=== PATIENT | female | born 1985 | race Caucasian/White ===

== ENCOUNTER 2024-08-17 10:14 | Outpatient (AMB) | payer OTHER, SELFPAY ==
--- NOTE | 2024-08-17 10:18 | A.OFFPC_ITS ---
Vital Signs 08/17/24 10:37 Height 5 ft 2.99 in Weight 188 lb 6 oz BMI 33.4 BP 104/70 Blood Pressure Location Rt brachial Position Sitting Respiration 14 Pulse 65 Pulse Source Pulse Oximeter Pulse Oximetry (%) 97 Oxygen Delivery Method Room Air Intake Visit Reasons: COMPANION CAREGIVER/PE appt Intake Note: New patient visit Allergies No Known Allergies Allergy (Verified 08/17/24 10:32) Medication List - Last Reconciled 08/17/24 by Heather Hilario PA-C bupropion HCl 100 mg PO DAILY cholecalciferol (vitamin D3) 125 mcg PO DAILY Tobacco use date assessed: 08/17/24 Dental Screening Did you have a dental visit in the last 12 months?: No Did you have a dental problem in the last 6 months where you did not have access to dental care?: No Was dental information given to patient?: Patient declined HPI COMPANION CAREGIVER/PE appt HPI Details Patient is a 39-year-old female with a significant past medical history of dysthymia, generalized anxiety disorder and obesity presenting today to [facility]. She denies any acute concerns today. 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 States that she is very happy. She was last seen by myself and had a physical on 09/22/23. Psych: Has been well-controlled with Wellbutrin 150 mg Adjunct Professor Of English: Up-to-date. Follows with Dr. Herrera. Had a tubal ligation. [facility] Family History (Updated 08/17/24 @ 11:11 by Malissa Marin CMA) Mother Anxiety Depression Diabetes HTN (hypertension) Hypothyroidism Obesity Father ADHD Osteoarthritis Brother Anxiety Depression Sister Anxiety Depression Other FHx: mental illness Social History (Updated 08/17/24 @ 11:12 by Malissa Marin CMA) Housing: House Alcohol intake: current Patient Tobacco Use Status: Never used Tobacco e-Cigarette/Vaping Use: Never Used Second Hand Smoke Exposure: No Use of substances other than those prescribed or required for medical reasons: No Cognitive needs: No Hearing needs: No Vision needs: No Questionnaire PHQ-9 Over the last 2 weeks, how often have you been bothered by any of the following problems? 1. Little interest or pleasure in doing things: more than half the days 2. Feeling down, depressed, or hopeless: more than half the days 3. Trouble falling or staying asleep, or sleeping too much: more than half the days 4. Feeling tired or having little energy: more than half the days 5. Poor appetite or overeating: more than half the days 6. Feeling bad about yourself - or that you are a failure or have let yourself or your family down: more than half the days 7. Trouble concentrating on things, such as reading the newspaper or watching television: more than half the days 8. Moving or speaking so slowly that other people could have noticed. Or the opposite - being so fidgety or restless that you have been moving around a lot more than usual: more than half the days 9. Thoughts that you would be better off or of hurting yourself in some way: more than half the days Total score: 18 Depression Screening Interpretation: Positive Depression Screening Done: Yes 39847 - PHQ-9 Billing: Yes Source: Developed by Drs. Anastacio Dela Cruz, Briana Tang, Rahul Rolle and colleagues, with an educational matilda from [employer]. Thrive Questionnaire Date Thrive assessed: 08/17/24 I am a: Patient What is your living situation today?: I have a steady place to live Within the past 12 months, did the food you bought not last and you didn't have the money to get more?: Never true Within the past 12 months, did you worry whether your food would run out before you got money to buy more?: Never true Do you have trouble paying for medicines?: No Do you have trouble getting transportation to medical appointments?: No Do you have trouble paying your heating and electricity bill?: No Do you have trouble taking care of your child, family member or friend?: No Do you have trouble with day-to-day activities such as bathing, preparing meals, shopping, managing finances, etc.?: No Are you currently unemployed and looking for a job?: No Are you interested in more education?: No Please select the resources that you would like help with: None Currently or been in a relationship where the following occur: No concerns reported THRIVE Score: 0 AUDIT C Alcohol Use Questionnaire (AUDIT-C) 1. How often do you have a drink containing alcohol?: 2-3 times a week 2. How many drinks containing alcohol do you have on a typical day when you are drinking?: 3 or 4 3. How often do you have six or more drinks on one occasion?: Less than monthly Total Score: 5 KRISS-7 AMB Questionnaire KRISS-7 Date KRISS - 7 assessed: 08/17/24 Feeling nervous, anxious, or on edge: 3 = Nearly every day Not being able to stop or control worryin = Nearly every day Worrying too much about different things: 3 = Nearly every day Trouble relaxin = More than half the days Being so restless that it is hard to sit still: 1 = Several days Becoming easily annoyed or irritable: 2 = More than half the days Feeling afraid as if something awful might happen: 2 = More than half the days Total KRISS-7 score (0-4 normal; 5-9 mild; 10-14 moderate; 15-21 severe): 16 Source: Developed by Drs. Anastacio Dela Cruz, Briana Tang, Rahul Rolle and colleagues, with an educational matilda from [employer]. KRISS-7 Assessment Billing KRISS-7 Assessment Tool: KRISS-7 Assessment 35193 Physical exam (Primary Care) Vital Signs: Last Vital Signs Pulse 65 08/17/24 10:37 Resp 14 08/17/24 10:37 BP 104/70 08/17/24 10:37 Pulse Ox 97 08/17/24 10:37 Oxygen Delivery Method Room Air 08/17/24 10:37 BMI result Body Mass Index 33.4 Tobacco/Smoking Status: Tobacco use Status Tobacco use date assessed 08/17/24 08/17/24 10:36 Patient Tobacco Use Status Never used Tobacco 08/17/24 10:36 e-Cigarette/Vaping Use Never Used 08/17/24 10:36 PHQ-9: PHQ-9 Score PHQ-9: Total score 18 08/17/24 11:12 Depression Screening Interpretation: Positive Thrive Assessment: Date of Thrive Assessment Date Thrive assessed 08/17/24 08/17/24 11:12 Currently or been in a relationship where the following occur: No concerns reported Const Orientation/consciousness: patient oriented x3 HENMT Ears: hearing grossly normal bilaterally Neck Thyroid: Thyroid normal Lymphatic: no lymphadenopathy noted Resp Auscultation: clear to auscultation bilaterally Cardio Rate: regular rate Rhythm: regular rhythm Heart sounds: S1 normal heart sound present and S2 normal heart sound present GI Inspection: Yes normal to inspection Palpation (GI): Soft to palpation and Other GI palpation findings present (nontender, no cva tenderness) Auscultation: normoactive bowel sounds Rectal Exam - Female: deferred Skin General skin exam: no rashes or lesions noted Neuro General: patient oriented x3, gait normal and no focal motor deficits Coding Level of Care Code Est Pt Level 4 (24743) Complex EM visit Add On G2211 Diagnoses Dysthymia F34.1 Generalized anxiety disorder F41.1 Additional Codes KRISS-7 Assessment Billing - KRISS-7 Assessment Tool: KRISS-7 Assessment 12717 ([id number]) PHQ-9 - 79414 - PHQ-9 Billing: Yes ([id number]) Assessment & Plan Assessment & Plan (1) Dysthymia: Code(s): F34.1 - Dysthymic disorder Category: Medical Plan: Continue current regimen. Refills provided. Labs ordered today. Follow up pending test results. (2) Generalized anxiety disorder: Code(s): F41.1 - Generalized anxiety disorder Category: Medical Plan: As above. Orders: Orders Comprehensive Printer. Panel Fast Today F34.1 - Dysthymic disorder, F41.1 - Generalized anxiety disorder, Z00.00 - Encounter for general adult medical exa mination without abnormal findings Complete Blood Count Auto Diff Today F34.1 - Dysthymic disorder, F41.1 - Generalized anxiety disorder, Z00.00 - Encounter for general adult medical examination without abnormal findings TSH reflex Free T4 Today F34.1 - Dysthymic disorder, F41.1 - Generalized anxiety disorder, Z00.00 - Encounter for general adult medical examination without abnormal findings Lipid Panel Today F34.1 - Dysthymic disorder, F41.1 - Generalized anxiety disorder, Z00.00 - Encounter for general adult medical examination without abnormal findings Vitamin B12 and Folate Today F34.1 - Dysthymic disorder, F41.1 - Generalized anxiety disorder, Z00.00 - Encounter for general adult medical examination without abnormal findings Medications: New bupropion HCl XL (Wellbutrin XL) 150 mg PO QAM 90 tabs 3RF
[2024-08-17 10:37] VITALS: BP 104/70; PULSE 65; RESP 14; O2SAT 97; BMI 33.4
== END 2024-08-17 10:54 | disposition home or self-care (01) ==
LOC: HO.HMCFM 10:15
PROVIDERS: PCP Physician Assistant; Visit Provider Physician Assistant
DX: F34.1 Dysthymic disorder (principal); F41.1 Generalized anxiety disorder

== ENCOUNTER → 2024-08-17 10:14 | Outpatient (BNVA) | payer OTHER, SELFPAY | PROVIDERS: PCP Physician Assistant; Visit Provider Physician Assistant | DX: F34.1 Dysthymic disorder (principal); F41.1 Generalized anxiety disorder | CPT/HCPCS: 96127 ==

== ENCOUNTER 2025-04-28 12:08 | Outpatient (REF) | payer OTHER, SELFPAY ==
[2025-04-28 13:57] LABS: MANUAL DIFF FLAG NO
[2025-04-28 14:03] LABS: Hematocrit 37.5 % (37.0-47.0); Hemoglobin 12.5 g/dl (12.0-16.0); Imm Gran Abs Auto 0.02 X10*3/uL (0.00-0.03); Imm Gran Pct Auto 0.2 % (0.0-0.4); Lymphocytes Absolute Auto 1.8 X10*3/uL (1.2-4.9); Mean Corpuscular HGB Conc 33.3 g/dl (31.0-35.0); Mean Corpuscular Hemoglobin 30.5 pg (27.0-33.0); Mean Corpuscular Volume 91.5 fL (80.0-98.0); NRBC Abs Auto 0.000 X10*3/uL (0.0-0.012); NRBC Pct Auto 0.0 /100WBC (0.0-0.2); Platelet Count 284 X10*3/uL (160-400); Red Blood Count 4.10 X10*6/uL (4.20-5.50); White Blood Count 10.0 X10*3/uL (4.8-10.8)
[2025-04-28 14:22] LABS: Alanine Aminotransferase 22 U/L (0-31); Albumin Level 4.0 g/dL (3.5-5.0); Alkaline Phosphatase 60 U/L (39-117); Anion Gap 9 (12-20); Aspartate Amino Transferase 21 U/L (5-31); Blood Urea Nitrogen 19 mg/dL (9-16); Calcium 9.4 mg/dL (8.4-10.2); Carbon Dioxide 22 mmol/L (22-29); Chloride 110 mmol/L (96-108); Cholesterol 168 mg/dL (<200); Estimated Glomerular Filt Rate > 60; HDL Cholesterol 47 mg/dL (>40); Potassium 4.3 mmol/L (3.3-5.1); Sodium 137 mmol/L (135-145); Total Protein 7.9 g/dL (6.5-8.0); Triglycerides 70 mg/dL (<150)
[2025-04-28 14:48] LABS: Folate 12.1 ng/mL (> or = 4.0); Vitamin B12 527 pg/mL (200-900)
== END 2025-04-28 12:09 | disposition home or self-care (01) ==
LOC: HO.WFDLDS 12:08
PROVIDERS: Visit Provider Physician Assistant
DX: Z00.00 Encounter for general adult medical examination without abnormal findings (principal); F34.1 Dysthymic disorder; F41.1 Generalized anxiety disorder
CPT/HCPCS: 36415; 80053; 80061; 82607; 82746; 84443; 85025

== ENCOUNTER 2025-06-01 09:14 | Outpatient (AMB) | payer OTHER, SELFPAY ==
--- NOTE | 2025-06-01 09:26 | A.OFFPC_ITS ---
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 Allergies No Known Allergies Allergy (Verified 06/01/25 09:27) Medication List - Last Reconciled 06/01/25 by Heather Hilario PA-C bupropion HCl XL (Wellbutrin XL) 150 mg PO QAM cholecalciferol (vitamin D3) 125 mcg PO DAILY prednisone take 3 tab po x 3 days, take 2 tab po x 3 days, 1 tab po x 3 days Tobacco use date assessed: 06/01/25 Dental Screening Dental Screen Date: 06/01/25 Did you have a dental visit in the last 12 months?: No Did you have a dental problem in the last 6 months where you did not have access to dental care?: No Was dental information given to patient?: Patient declined HPI CPE HPI Details Patient is [id number] female with a significant past medical history of dysthymia, generalized anxiety disorder presenting today for a physical exam She does have 1 concern today that her left hand and wrist started bothering her about 2 months ago. She states that it started with soft tissue swelling over the dorsum of the hand and feeling like her knuckles and her wrists were just achy. She states it felt like an arthritis kayaking stiffness and achiness. She states eventually the joint then became erythematous. It has since calmed down in the amount of redness but it still does have a purplish discoloration. She says that she has been wearing a brace which is somewhat helpful and taking Motrin which alleviates the discomfort. She thought initially she just possibly injured her hand despite not recalling any trauma. She states it is now concer mayra because has been a couple of months and it has not resolved. Upon exam today we did review that the purplish, dusky erythema does extend up the lower left arm as well and she states that it has probably been like that the last month or so as well. No known tick bites, fever, chills, illness. No family history of autoimmune diseases. Psych: Has been well-controlled with Wellbutrin 150 mg Biomedical Engineering Technologist: Up-to-date. Follows with Dr. Herrera. Had a tubal ligation. Mammo: Has not had 1 yet PFSH Family History Mother Anxiety Depression Diabetes HTN (hypertension) Hypothyroidism Obesity Father ADHD Osteoarthritis Brother Anxiety Depression Sister Anxiety Depression Other FHx: mental illness Social History (Updated 06/01/25 @ 09:33 by Malissa Marin CMA) Housing: House Alcohol intake: current Patient Tobacco Use Status: Never used Tobacco e-Cigarette/Vaping Use: Never Used Second Hand Smoke Exposure: No service: No Current occupational status: employed Current occupation: nurse Current occupational exposures/hazards: No Cognitive needs: No Hearing needs: No Vision needs: No Questionnaire PHQ-9 Over the last 2 weeks, how often have you been bothered by any of the following problems? 1. Little interest or pleasure in doing things: several days 2. Feeling down, depressed, or hopeless: several days 3. Trouble falling or staying asleep, or sleeping too much: several days 4. Feeling tired or having little energy: several days 5. Poor appetite or overeating: several days 6. Feeling bad about yourself - or that you are a failure or have let yourself or your family down: several days 7. Trouble concentrating on things, such as reading the newspaper or watching television: several days 8. Moving or speaking so slowly that other people could have noticed. Or the opposite - being so fidgety or restless that you have been moving around a lot more than usual: not at all 9. Thoughts that you would be better off or of hurting yourself in some way: not at all Total score: 7 Depression Screening Interpretation: Positive Depression Screening Done: Yes 65443 - PHQ-9 Billing: Yes Source: Developed by Drs. Anastacio Dela Cruz, Briana Tang, Rahul Rolle and colleagues, with an educational matilda from [employer]. Thrive Questionnaire Date Thrive assessed: 05/25/25 I am a: Patient What is your living situation today?: I have a steady place to live Within the past 12 months, did the food you bought not last and you didn't have the money to get more?: Never true Within the past 12 months, did you worry whether your food would run out before you got money to buy more?: Never true Do you have trouble paying for medicines?: No Do you have trouble getting transportation to medical appointments?: No Do you have trouble paying your heating and electricity bill?: No Do you have trouble taking care of your child, family member or friend?: No Do you have trouble with day-to-day activities such as bathing, preparing meals, shopping, managing finances, etc.?: No Are you currently unemployed and looking for a job?: No Are you interested in more education?: No Please select the resources that you would like help with: None Currently or been in a relationship where the following occur: No concerns reported THRIVE Score: 0 AUDIT C Alcohol Use Questionnaire (AUDIT-C) 1. How often do you have a drink containing alcohol?: 2-4 times a month 2. How many drinks containing alcohol do you have on a typical day when you are drinking?: 1 or 2 3. How often do you have six or more drinks on one occasion?: Less than monthly Total Score: 3 KRISS-7 AMB Questionnaire KRISS-7 Date KRISS - 7 assessed: 06/01/25 Feeling nervous, anxious, or on edge: 3 = Nearly every day Not being able to stop or control worryin = More than half the days Worrying too much about different things: 2 = More than half the days Trouble relaxin = More than half the days Being so restless that it is hard to sit still: 1 = Several days Becoming easily annoyed or irritable: 3 = Nearly every day Feeling afraid as if something awful might happen: 2 = More than half the days Total KRISS-7 score (0-4 normal; 5-9 mild; 10-14 moderate; 15-21 severe): 15 Source: Developed by Drs. Anastacio Dela Cruz, Briana Tang, Rahul Rolle and colleagues, with an educational maitlda from [employer]. KRISS-7 Assessment Billing KRISS-7 Assessment Tool: KRISS-7 Assessment 82507 Physical exam (Primary Care) Vital Signs: Last Vital Signs Temp 98.1 F 06/01/25 09:29 Pulse 66 06/01/25 09:29 Resp 12 06/01/25 09:29 BP 108/76 06/01/25 09:29 Pulse Ox 100 08/21/25 09:29 Oxygen Delivery Method Room Air 06/01/25 09:29 BMI result Body Mass Index 32.6 Tobacco/Smoking Status: Tobacco use Status Tobacco use date assessed 06/01/25 06/01/25 09:31 Patient Tobacco Use Status Never used Tobacco 06/01/25 09:33 e-Cigarette/Vaping Use Never Used 06/01/25 09:33 PHQ-9: PHQ-9 Score PHQ-9: Total score 7 06/01/25 09:31 Depression Screening Interpretation: Positive Thrive Assessment: Date of Thrive Assessment Date Thrive assessed 05/25/25 06/01/25 09:27 Currently or been in a relationship where the following occur: No concerns reported Const Orientation/consciousness: patient oriented x3 HENMT Ears: hearing grossly normal bilaterally and TM's normal bilaterally General nose exam: No nasal polyps present Face and sinus: Yes sinuses nontender Mouth: Normal oral and palatal mucosa present Eyes Pupils: Equal, round and reactive pupils present EOM: EOMs intact bilaterally Neck Neck: Yes full ROM and Yes no lymphadenopathy Thyroid: Thyroid normal Chest Chest palpation & inspection: normal inspection of the chest Resp Auscultation: clear to auscultation bilaterally Cardio Rate: regular rate Rhythm: regular rhythm Heart sounds: S1 normal heart sound present and S2 normal heart sound present Peripheral pulses: Peripheral pulses 2+ throughout GI Other: Soft, nontender Auscultation: normal bowel sounds Rectal Exam - Female: deferred General: Yes no CVA tenderness Back/Spine/Pelvis Other: Nontender Back: no CVA tenderness Skin Other: The skin on the dorsum of the left hand is noted to be a dusky erythema that extends from the dorsum of the hand up the posterior aspect of the left upper arm. It is less noticeable on the upper extremity as opposed to the hand. It does not extend down to the fingers. Skin is intact. Otherwise skin is without any rashes. Neuro General: patient oriented x3, gait normal, CN's II-XI intact bilaterally and deep tendon reflexes 2+ bilaterally Cranial nerves: Yes Equal, round and reactive pupils present Motor exam (neuro): 5/5 motor strength present throughout Sensory Exam: double simultaneous stimulation for sensation normal Coordination: [id number] test normal and Romberg test negative Extrem Other: Denies any significant tenderness to palpation. Sensation intact. Strength intact. General: Yes normal to inspection, Yes full ROM and Yes capillary refill normal Psych Affect: normal affect Attitude: cooperative Thought process: Normal thought process present Thought content: Normal thought content present Insight: Good insight present (Psych) Judgement: Good judgement present (Psych) Results Reviewed Results Reviewed: Laboratory Tests 04/28/25 12:10 WBC 10.0 RBC 4.10 L Hgb 12.5 Hct 37.5 Plt Count 284 Sodium 137 Potassium 4.3 Chloride 110 H Carbon Dioxide 22 Anion Gap 9 L BUN 19 H Creatinine 0.86 Estimated GFR > 60 Fasting Glucose 87 Calcium 9.4 Total Bilirubin 0.5 AST 21 ALT 22 Alkaline Phosphatase 60 Total Protein 7.9 Triglycerides 70 Cholesterol 168 LDL Cholesterol, Calc 107 H HDL Cholesterol 47 Vitamin B12 527 Folate 12.1 TSH 2.03 Coding Level of Care Code Est Pt Prev Care 40-64y(05793) Diagnoses Swelling of left hand M79.89 Erythema of hand L53.9 Arthralgia M25.50 Dysthymia F34.1 Routine general medical examination at a health care facility Z00.00 Additional Codes KRISS-7 Assessment Billing - KRISS-7 Assessment Tool: KRISS-7 Assessment 39408 ([id number]) PHQ-9 - 05491 - PHQ-9 Billing: Yes ([id number]) Assessment & Plan Assessment & Plan (1) Swelling of left hand: Code(s): M79.89 - Other specified soft tissue disorders Category: Medical Plan: X-ray ordered Labs ordered We will trial prednisone taper. Short term follow up. We will follow up pending test results as well. She will follow up if anything worsens or changes. (2) Erythema of hand: Code(s): L53.9 - Erythematous condition, unspecified Category: Medical Plan: as above (3) Arthralgia: Code(s): M25.50 - Pain in unspecified joint Category: Medical Plan: as above (4) Dysthymia: Code(s): F34.1 - Dysthymic disorder Category: Medical Plan: well controlled (5) Routine general medical examination at a health care facility: Code(s): Z00.00 - Encounter for general adult medical examination without abnormal findings Plan: Health maintenance reviewed. Recent labs reviewed. Mammogram ordered. Orders: Orders Basic Metabolic Panel Today L53.9 - Erythematous condition, unspecified, M25.50 - Pain in unspecified joint, M79.89 - Other specified soft tissue disorders Liver Panel Today L53.9 - Erythematous condition, unspecified, M25.50 - Pain in unspecified joint, M79.89 - Other specified soft tissue disorders ANCA Vasculitides Today L53.9 - Erythematous condition, unspecified, M25.50 - Pain in unspecified joint, M79.89 - Other specified soft tissue disorders MM screening mammo BI Today Z12.31 - Encounter for screening mammogram for malignant neoplasm of breast Erythrocyte Sedimentation Rate Today L53.9 - Erythematous condition, unspecified, M25.50 - Pain in unspecified joint, M79.89 - Other specified soft tissue disorders Complete Blood Count Auto Diff Today L53.9 - Erythematous condition, unspec ified, M25.50 - Pain in unspecified joint, M79.89 - Other specified soft tissue disorders JEY Reflex Titer and Pattern Today L53.9 - Erythematous condition, unspecified, M25.50 - Pain in unspecified joint, M79.89 - Other specified soft tissue disorders Rheumatoid Factor Today L53.9 - Erythematous condition, unspecified, M25.50 - Pain in unspecified joint, M79.89 - Other specified soft tissue disorders Lyme IgG/IgM w/reflex to WB Today L53.9 - Erythematous condition, unspecified, M25.50 - Pain in unspecified joint, M79.89 - Other specified soft tissue disorders XR wrist LT min 3V Today M25.50 - Pain in unspecified joint, M79.89 - Other specified soft tissue disorders XR hand LT min 3V Today M25.50 - Pain in unspecified joint, M79.89 - Other specified soft tissue disorders Medications: New prednisone take 3 tab po x 3 days, take 2 tab po x 3 days, 1 tab po x 3 days 18 tabs 0RF
[2025-06-01 09:29] VITALS: BP 108/76; PULSE 66; RESP 12; TEMP 36.7; O2SAT 100; BMI 32.6
== END 2025-06-01 09:47 | disposition home or self-care (01) ==
LOC: HO.HMCFM 09:15
PROVIDERS: PCP Physician Assistant; Visit Provider Physician Assistant
DX: M79.89 Other specified soft tissue disorders (principal); L53.9 Erythematous condition, unspecified; M25.50 Pain in unspecified joint; F34.1 Dysthymic disorder; Z00.00 Encounter for general adult medical examination without abnormal findings

== ENCOUNTER 2025-06-01 09:14 | Outpatient (REF) | payer OTHER, SELFPAY ==
[2025-06-01 11:31] LABS: MANUAL DIFF FLAG NO
[2025-06-01 11:35] LABS: Hematocrit 37.3 % (37.0-47.0); Hemoglobin 12.5 g/dl (12.0-16.0); Imm Gran Abs Auto 0.03 X10*3/uL (0.00-0.03); Imm Gran Pct Auto 0.4 % (0.0-0.4); Lymphocytes Absolute Auto 1.6 X10*3/uL (1.2-4.9); Mean Corpuscular HGB Conc 33.5 g/dl (31.0-35.0); Mean Corpuscular Hemoglobin 30.4 pg (27.0-33.0); Mean Corpuscular Volume 90.8 fL (80.0-98.0); NRBC Abs Auto 0.000 X10*3/uL (0.0-0.012); NRBC Pct Auto 0.0 /100WBC (0.0-0.2); Platelet Count 274 X10*3/uL (160-400); Red Blood Count 4.11 X10*6/uL (4.20-5.50); White Blood Count 8.3 X10*3/uL (4.8-10.8)
[2025-06-01 12:15] LABS: Alanine Aminotransferase 16 U/L (0-31); Albumin Level 4.1 g/dL (3.5-5.0); Alkaline Phosphatase 63 U/L (39-117); Anion Gap 9 (12-20); Aspartate Amino Transferase 18 U/L (5-31); Blood Urea Nitrogen 14 mg/dL (9-16); Calcium 9.2 mg/dL (8.4-10.2); Carbon Dioxide 26 mmol/L (22-29); Chloride 109 mmol/L (96-108); Estimated Glomerular Filt Rate > 60; Potassium 4.0 mmol/L (3.3-5.1); Sodium 140 mmol/L (135-145); Total Protein 7.9 g/dL (6.5-8.0)
[2025-06-02 13:33] LABS: Lyme Blot 6.95 index
[2025-06-02 13:58] LABS: Proteinase 3 PR3 Antibodies <1.0 AI
[2025-06-03 12:00] LABS: Lyme Abs Screen POSITIVE
[2025-06-05 11:08] LABS: Anti Nuclear Antibody Screen NEGATIVE (NEGATIVE)
[2025-06-06 13:43] LABS: 39KD (IgG) Band REACTIVE; 41KD (IgG) Band REACTIVE; Lyme IgG Blot Interp POSITIVE (NEGATIVE); Lyme IgM Blot Interp POSITIVE (NEGATIVE)
== END 2025-06-01 09:15 | disposition home or self-care (01) ==
LOC: HO.WFDLDS 09:14
PROVIDERS: PCP Physician Assistant; Visit Provider Physician Assistant
DX: Z00.00 Encounter for general adult medical examination without abnormal findings (principal); M79.89 Other specified soft tissue disorders; L53.9 Erythematous condition, unspecified; M25.50 Pain in unspecified joint; F34.1 Dysthymic disorder
CPT/HCPCS: 36415; 80048; 80076; 85025; 85652; 86021; 86038; 86431; 86617; 86618; 96127

== ENCOUNTER 2025-06-03 09:10 | Outpatient (REF) | payer OTHER, SELFPAY ==
--- NOTE | ~2025-06-03 | XR_ITS ---
EXAMINATION: XR HAND, LEFT CLINICAL INFORMATION: M25.50 - Pain in unspecified joint COMPARISON: None available. TECHNIQUE: PA, lateral, and oblique views of the left hand. FINDINGS: The metacarpal bones are intact. The phalanges are intact with normal alignment. The carpal bones are intact with normal alignment. Distal radius and ulna are intact. No bony erosions. There is preservation of the joint spaces. No subchondral cyst formation. No soft tissue calcifications. No subcutaneous emphysema. No lytic or blastic lesions. XR/XR hand LT min 3V IMPRESSION: Normal x-ray, left hand. Electronically signed by: Aravind Orellana MD 06/05/2025 07:14 AM EDT
== END 2025-06-03 09:11 | disposition home or self-care (01) ==
LOC: HO.HMGCX 09:10
PROVIDERS: PCP Physician Assistant; Visit Provider Physician Assistant
DX: M79.89 Other specified soft tissue disorders (principal); M25.50 Pain in unspecified joint
CPT/HCPCS: 73130

== ENCOUNTER → 2025-06-03 09:13 | Outpatient (BNV) | payer OTHER, SELFPAY | PROVIDERS: PCP Physician Assistant; Visit Provider Radiology Diagnostic Radiology | DX: M25.542 Pain in joints of left hand (principal) | CPT/HCPCS: 73130 ==